=== PATIENT | female | born 1955 | race Caucasian/White ===

== ENCOUNTER 2016-06-26 10:07 | Day surgery (SDC) | payer MEDICARE, OTHER ==
[2016-06-23 13:11] VITALS: BMI 35.0
[~2016-06-26 10:07] MED LIST: LEVOFLOXACIN 500 MG PREMIX BAG IVPB ONE
[2016-06-26] MEDS ORDERED: MIDAZOLAM HCL 2 MG/2 ML SINGLE DOSE VIAL ONE ×2 (13:22)
[2016-06-26] MEDS ORDERED: DEXAMETHASONE SOD PHOSPHATE 4 MG/1 ML VIAL ONE (13:38)
[2016-06-26] MEDS ORDERED: LEVOFLOXACIN 500 MG IVPB 100 ML IVPB ONE (13:43)
--- NOTE | 2016-06-26 14:54 | OP ---
Operative Note - Note: Operative Date: 06/26/16 Pre-Operative Diagnosis: left renal stone Operation: left eswl Findings: 6mm left lower pole renal stone Post-Operative Diagnosis: Same as Pre-op Surgeon: Ti Burns Anesthesia: General Operative Report Dictated: Yes
[2016-06-26 15:13] VITALS: TEMP 97.6
[2016-06-26] MEDS ORDERED: LACTATED RINGERS SOLUTION 1,000 ML IV SCH (15:15)
[2016-06-26 18:26] VITALS: BP 165/75; PULSE 60
--- NOTE | 2016-06-26 20:53 | OP ---
DATE OF OPERATION: 06/26/2016 PREOPERATIVE DIAGNOSIS: Left renal stone. POSTOPERATIVE DIAGNOSIS: Left renal stone. PROCEDURE: Left extracorporeal shock-wave lithotripsy. ATTENDING: Davidson Mireles MD ANESTHESIA: General. OPERATION: The patient was brought in the operating room and placed in supine position on the operating room table. Ultrasonography and fluoroscopy were performed. The patient was then given general anesthesia and preoperative surgical prophylaxis. The 6-mm lower pole stone was lithotripsied utilizing extracorporeal shock-wave. Then 2500 impulses at 20 joules of power was administered to the stone, with excellent fragmentation of the stone. No complications were noted. The patient tolerated the procedure very well. The disposition of the patient was to the recovery room. DAVIDSON MIRELES M.D. /[id number]
== END 2016-06-26 18:26 | disposition home or self-care (01) ==
LOC: JASU-SURG 10:07
PROVIDERS: ATTEND Urology
PROC: 0TF3XZZ Fragmentation in Right Kidney Pelvis, External Approach (ICD-10-PCS; principal; 2016-06-26 12:00)
DX: N20.0 Calculus of kidney (principal)
CPT/HCPCS: 94760

== ENCOUNTER 2017-07-20 08:55 | Emergency (ER) | payer MEDICARE, OTHER ==
[2017-07-20 09:10] VITALS: BP 125/77; TEMP 97.9; BMI 35.2
[2017-07-20] MEDS ORDERED: ALBUTEROL SO4 2.5/IPRATROPIUM 0.5 INH SOL 3 ML VIAL.NEB. NEB ONE ×2 (09:49→09:53)
--- NOTE | 2017-07-20 09:55 | PDOC ---
History of Present Illness - General Chief Complaint: Respiratory Stated Complaint: FEVER, SOB (ASTHMA) Time Seen by Provider: 07/20/17 09:21 History Source: Patient Exam Limitations: No Limitations - History of Present Illness Initial Comments: 07/20/17 09:51 Patient came for evaluation of persistent cough, fevers last night to 100.2, and mild shortness of breath. PMD 3 days ago and prescribed Singulair, albuterol , and Levaquin. States that cough has persisted. Did not call PMD for re-eval. Denies chest pain, palpitations, dizziness but did not feel well therefore felt had need for reevaluation 07/20/17 16:08 Timing/Duration: reports: getting worse Severity: reports: mild, moderate Modifying Factors: improves with: albuterol inhaler, albuterol nebulizer, antibiotics, coughing Associated Symptoms: reports: chest pain/soreness, cough, fever/chills, nasal congestion, wheezing Past History - Travel Traveled outside of the country in the last 30 days: No Close contact w/someone who was outside of country & ill: No - Past Medical History Allergies/Adverse Reactions: Allergies Allergy/AdvReac Type Severity Reaction Status Date / Time codeine Allergy Severe Verified 07/20/17 09:03 morphine Allergy Severe Verified 07/20/17 09:03 shellfish derived Allergy Severe Verified 07/20/17 09:03 Home Medications: Ambulatory Orders Atenolol [Tenormin -] 100 mg PO HS 02/18/16 Insulin (Novolog 70/30) [Novolog Mix 70/30 Vial] 25 ml SQ BID 02/18/16 Lisinopril/Hydrochlorothiazide [Lisinopril-Hctz 10-12.5 mg Tab] 1 each PO DAILY 02/18/16 Insulin (Levemir) [Levemir Vial] 40 unit SQ HS 07/20/17 predniSONE [Deltasone -] 20 mg PO BID #8 tablet 07/20/17 Anemia: No Asthma: No Cancer: No Cardiac Disorders: No CVA: No COPD: No CHF: No Dementia: No Diabetes: Yes (iddm) GI Disorders: No Disorders: No HTN: Yes Hypercholesterolemia: Yes Liver Disease: No Seizures: No Thyroid Disease: No - Surgical History Abdominal Surgery: No Appendectomy: No Cardiac Surgery: No Cholecystectomy: Yes Lung Surgery: No Neurologic Surgery: No Orthopedic Surgery: Yes (bilateral carple tunnel sx) - Suicide/Smoking/Psychosocial Hx Smoking History: Former smoker Have you smoked in the past 12 months: No If you are a former smoker, when did you quit?: 9 yrs ago Information on smoking cessation initiated: No Hx Alcohol Use: No Drug/Substance Use Hx: No Substance Use Type: None Respiratory Specific PMHX - Complaint Specific PMHX Angina: No Bronchitis: Yes Review of Systems - Review of Systems Able to Perform ROS?: Yes Is the patient limited Samoan proficient: Yes Constitutional: Yes: Symptoms Reported, See HPI, Chills, Fever, Malaise HEENTM: Yes: Symptoms Reported, See HPI, Nose Congestion Respiratory: Yes: Symptoms reported, See HPI, Cough (states is nonproductive), Wheezing ABD/GI: No: Symptoms Reported Musculoskeletal: No: Symptoms Reported Integumentary: Yes: See HPI. No: Symptoms Reported, Pruritus, Rash Neurological: Yes: See HPI. No: Symptoms reported, Headache All Other Systems: Reviewed and Negative *Physical Exam - Vital Signs Last Vital Signs Temp Pulse Resp BP Pulse Ox 97.9 F 98 H 20 125/77 98 07/20/17 09:00 07/20/17 09:00 07/20/17 09:00 07/20/17 09:00 07/20/17 09:00 - Physical Exam General Appearance: Yes: Nourished, Appropriately Dressed, Apparent Distress, Mild Distress HEENT: positive: [place], Normal ENT Inspection, TMs Normal, Pharynx Normal, Rhinorrhea Neck: positive: Supple, Lymphadenopathy (R). negative: Tender Respiratory/Chest: positive: Wheezing. negative: Lungs Clear, Normal Breath Sounds Gastrointestinal/Abdominal: positive: Normal Bowel Sounds, Soft. 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 Patient is nontoxic appearing, has no significant shortness of breath or air hunger, has a moist cough but does not complain of chest pain, palpitations, significant shortness of breath. States feels well and was hopeful for discharge. Case was discussed with Dr. Tse, her PMD who prescribed Levaquin, Singulair and albuterol earlier this week. She understands patient came to emergency department for continued treatment and will call in a prescription for a nebulizer compressor at home, albuterol prescription and encouraged use of steroids for breakthrough asthmatic symptoms. Patient was given 60 mg steroid here and prescription for 40 mg for the next 4 days. Also patient understands will follow-up with Dr. Tse in her office on Sunday. Reviewed need to return immediately to emergency department for worsened symptoms, shortness of breath, or any recurrence of fevers. We'll continue the Levaquin *DC/Admit/Observation/Transfer Diagnosis at time of Disposition: Upper respiratory infection, acute - Discharge Dispostion Disposition: HOME Condition at time of disposition: Stable Decision to Admit order: No - Prescriptions Prescriptions: predniSONE [Deltasone -] 20 mg PO BID #8 tablet - Referrals Referrals: Yury Delgado [Primary Care Provider] - - Patient Instructions Printed Discharge Instructions: DI for Acute Bronchitis Additional Instructions: continue Levaquin as prescribed, Use Nebulizer 4 times a day for next 2 days then as needed Contiunue Prednisone 40mg daily for next 4 days Check Blood Sugars daily to ensure no big changes. Rest, Lots of fluids See Dr Delgado Sunday for followup Return to ER for worsen fevers/ Cough/ problems with Blood sugars - Post Discharge Activity
[2017-07-20 11:00] VITALS: PULSE 93
[2017-07-20] MEDS ORDERED: predniSONE 20 MG TABLET (UD) PO ONE (11:41)
[2017-07-20] MEDS ORDERED: predniSONE 20 MG TABLET (UD) ONE (11:46)
== END 2017-07-20 12:17 | disposition home or self-care (01) ==
LOC: JERFT 08:55
PROC: 3E0F7GC Introduction of Other Therapeutic Substance into Respiratory Tract, Via Natural or Artificial Opening (ICD-10-PCS; principal; 2017-07-20)
DX: J06.9 Acute upper respiratory infection, unspecified (principal)
CPT/HCPCS: 71046-TC-FY; 94640; 99281-25; J7620

== ENCOUNTER 2017-10-01 14:03 | Emergency (ER) | payer MEDICARE, OTHER ==
[2017-10-01 14:50] VITALS: BMI 32.7
--- NOTE | 2017-10-01 14:50 | PDOC ---
Rapid Medical Evaluation Time Seen by Provider: 10/01/17 14:48 Medical Evaluation: Allergies Allergy/AdvReac Type Severity Reaction Status Date / Time codeine Allergy Severe Verified 10/01/17 14:44 morphine Allergy Severe Verified 10/01/17 14:44 shellfish derived Allergy Severe Verified 10/01/17 14:44 10/01/17 14:48 Patient c/o: epigastric pain since this am, no fever, brown watery diarrhea x 3 weeks, returned from [facility] on sunday, took meds with mild relief, Patient on brief exam: vss, appears dry Patient ordered for: labs, stool, fluids, ua Patient to proceed to the ED Discharge Disposition - Diagnosis Diarrhea - Referrals - Patient Instructions - Post Discharge Activity
[2017-10-01] MEDS ORDERED: SODIUM CHLORIDE 1,000 ML IV STA (14:51)
[2017-10-01 15:15] LABS: BASO % 0.3 % (0-2.0); EOS % 0.4 % (0-4.5); HEMATOCRIT 36.3 % (32.4-45.2); HEMOGLOBIN 12.5 GM/dL (10.7-15.3); LYMPH % 20.4 % (8-40); MCH 30.8 pg (25.7-33.7); MCHC 34.5 g/dl (32.0-36.0); MEAN CELL VOLUME 89.4 fl (80-96); MEAN PLT VOLUME 11.7 fl (7.5-11.1); MONO % 4.2 % (3.8-10.2); NEUT % 74.7 % (42.8-82.8); PLATELET COUNT 206 K/MM3 (134-434); RBC 4.05 M/mm3 (3.60-5.2); RDW 12.6 % (11.6-15.6); WHITE BLOOD COUNT 6.1 K/mm3 (4.0-10.0)
[2017-10-01 15:29] LABS: CHLORIDE 104 mmol/L (98-107); POTASSIUM 3.9 mmol/L (3.5-5.1); SODIUM 141 mmol/L (136-145)
[2017-10-01 15:37] LABS: ALBUMIN 3.6 g/dl (3.4-5.0); ANION GAP 9 (8-16); BILIRUBIN,TOTAL 0.4 mg/dL (0.2-1.0); BLOOD UREA NITROGEN 16 mg/dL (7-18); CALCIUM 9.2 mg/dL (8.5-10.1); CO2 28 mmol/L (21-32); CREATININE 0.8 mg/dL (0.55-1.02); GLUCOSE,RANDOM 187 mg/dL (74-106); LIPASE 85 U/L (73-393); MAGNESIUM 1.4 mg/dL (1.8-2.4); SGOT/AST 16 U/L (15-37); SGPT/ALT 32 U/L (12-78); TOT PROT 7.3 g/dl (6.4-8.2)
[2017-10-01 15:38] LABS: ALK PHOS 109 U/L (45-117)
--- NOTE | 2017-10-01 16:37 | PDOC ---
Attending Attestation - Medical Decision Making 10/01/17 17:39 Pt presents to the ED complaining of a one day history of epigastric abdominal pain, nausea and vomiting. Had diarrhea for several weeks that spontaneously resolved. Abdomen is non tender on my exam. Differential includes gastritis, pancreatitis, billiary disease, less likely ACS. Will check labs and treat with pepcid, reassess. <Paula Jiménez - Last Filed: 10/01/17 17:39> - Resident Resident Name: Cleopatra Berg - ED Attending Attestation I have performed the following: I have examined & evaluated the patient, The case was reviewed & discussed with the resident, I agree w/resident's findings & plan, Exceptions are as noted - HPI HPI: 10/01/17 17:54 The patient is a 62 year old female, with a significant past medical history of DM and HTN, who presents to the emergency department with, 2 days of diffuse abdominal pain with associated nausea and one episode of nonbloody emesis. She reports 2 days of decreased appetite. She returned home 4 days ago from vacation. As per patient, while she was on vacation in [facility] when she began having diarrhea which occurred for 3 weeks intermittently. She saw a doctor for her symptoms [place] who gave her an unknown pill which helped her for 2 days. She reports 2 days of vaginal and anal itching while on vacation. She went on vacation with a friend who is not depicting similar symptoms. She denies recent fevers, chills, headache or dizziness. She denies recent constipation. She denies recent dysuria, frequency, urgency or hematuria. She denies recent chest pain or shortness of breath. Allergies: NKA Past surgical history: None reported. Social history: Nonsmoker. Denies EtOH use and recreational drug use. - Physicial Exam PE: 10/01/17 17:55 GENERAL: Awake, alert, and fully oriented, in no acute distress HEAD: No signs of trauma NECK: Normal ROM, supple, no lymphadenopathy, JVD, or masses ABDOMEN: Soft, nontender, normoactive bowel sounds. No guarding, no rebound. No masses NEUROLOGICAL: Cranial nerves II through XII grossly intact. Normal speech. SKIN: Warm, Dry, normal turgor, no rashes or lesions noted. <Mal Elmore - Last Filed: 10/01/17 17:55> Attestations - Attestations 10/01/17 17:55 Documentation prepared by Mal Elmore, acting as chief medical technologist for Paula Jiménez MD. <Mal Elmore - Last Filed: 10/01/17 17:55>
--- NOTE | 2017-10-01 16:59 | PDOC ---
History of Present Illness - General Chief Complaint: Pain, Acute Stated Complaint: ABD PAIN Time Seen by Provider: 10/01/17 14:48 - History of Present Illness Initial Comments: 10/01/17 17:09 62 year old w/ past medical history of DM, HTN who presents with 3 weeks of nonbloody watery diarrhea PCP: Fatimah Dave 10/01/17 17:23 Past History - Past Medical History Allergies/Adverse Reactions: Allergies Allergy/AdvReac Type Severity Reaction Status Date / Time codeine Allergy Severe Verified 10/01/17 14:44 morphine Allergy Severe Verified 10/01/17 14:44 shellfish derived Allergy Severe Verified 10/01/17 14:44 Home Medications: Ambulatory Orders Atenolol [Tenormin -] 100 mg PO HS 02/18/16 Insulin (Novolog 70/30) [Novolog Mix 70/30 Vial] 25 ml SQ BID 02/18/16 Lisinopril/Hydrochlorothiazide [Lisinopril-Hctz 10-12.5 mg Tab] 1 each PO DAILY 02/18/16 Insulin (Levemir) [Levemir Vial] 40 unit SQ HS 07/20/17 predniSONE [Deltasone -] 20 mg PO BID #8 tablet 07/20/17 Anemia: No Asthma: No Cancer: No Cardiac Disorders: No CVA: No COPD: No CHF: No Dementia: No Diabetes: Yes (iddm) GI Disorders: No Disorders: No HTN: Yes Hypercholesterolemia: Yes Liver Disease: No Seizures: No Thyroid Disease: No - Surgical History Abdominal Surgery: No Appendectomy: No Cardiac Surgery: No Cholecystectomy: Yes Lung Surgery: No Neurologic Surgery: No Orthopedic Surgery: Yes (bilateral carple tunnel sx) - Suicide/Smoking/Psychosocial Hx Smoking History: Former smoker Have you smoked in the past 12 months: No If you are a former smoker, when did you quit?: 9 yrs ago Information on smoking cessation initiated: No Hx Alcohol Use: No Drug/Substance Use Hx: No Substance Use Type: None *Physical Exam - Vital Signs Last Vital Signs Temp Pulse Resp BP Pulse Ox 97.6 F 65 19 155/71 100 10/01/17 14:44 10/01/17 14:44 10/01/17 14:44 10/01/17 14:44 10/01/17 14:44 ED Treatment Course - LABORATORY CBC & Chemistry Diagram: 10/01/17 15:07 10/01/17 15:07 - ADDITIONAL ORDERS Additional order review: Laboratory Results 10/01/17 15:07 Sodium 141 Potassium 3.9 Chloride 104 Carbon Dioxide 28 Anion Gap 9 BUN 16 Creatinine 0.8 Creat Clearance w eGFR > 60 Random Glucose 187 H Calcium 9.2 Magnesium 1.4 L Total Bilirubin 0.4 AST 16 ALT 32 Alkaline Phosphatase 109 Total Protein 7.3 Albumin 3.6 Lipase 85 10/01/17 15:07 RBC 4.05 MCV 89.4 MCHC 34.5 RDW 12.6 MPV 11.7 H Neutrophils % 74.7 Lymphocytes % 20.4 D Monocytes % 4.2 Eosinophils % 0.4 Basophils % 0.3 - Medications Given in the ED: ED Medications Discontinued Medications Generic Name Dose Route Start Last Admin Trade Name Freq PRN Reason Stop Dose Admin Sodium Chloride 1,000 mls @ 1,000 mls/hr 10/01/17 14:51 10/01/17 15:16 Normal Saline - IV 10/01/17 15:50 1,000 mls/hr ASDIR STA Administration *DC/Admit/Observation/Transfer Diagnosis at time of Disposition: Diarrhea - Discharge Dispostion Disposition: HOME Condition at time of disposition: Stable Decision to Admit order: No - Referrals - Patient Instructions - Post Discharge Activity
[2017-10-01] MEDS ORDERED: FAMOTIDINE 20 MG/50 ML IVPB 20 MG/50 ML MG IVPB ONE ×2 (17:20→18:05)
[2017-10-01 17:27] LABS: ACETONE SERUM NEGATIVE (NEGATIVE)
[2017-10-01 17:53] VITALS: BP 124/88; PULSE 68; TEMP 97.8
[2017-10-01 18:13] LABS: URINE APPEARANCE CLEAR; URINE BILIRUBIN NEGATIVE (<2.0 mg/dL); URINE COLOR STRAW; URINE GLUCOSE (UA) 2+ (NEGATIVE); URINE KETONE NEGATIVE (NEGATIVE); URINE LEUK ESTERASE NEGATIVE (NEGATIVE); URINE NITRITE NEGATIVE (NEGATIVE); URINE PROTEIN NEGATIVE (NEGATIVE); URINE UROBILINOGEN NEGATIVE mg/dL (0.2-1.0)
--- NOTE | 2017-10-01 21:31 | PDOC ---
*Physical Exam - Vital Signs Last Vital Signs Temp Pulse Resp BP Pulse Ox 97.8 F 68 16 124/88 99 10/01/17 17:52 10/01/17 17:52 10/01/17 17:52 10/01/17 17:52 10/01/17 17:52 - Physical Exam General Appearance: Yes: Nourished ED Treatment Course - LABORATORY CBC & Chemistry Diagram: 10/01/17 15:07 10/01/17 15:07 - ADDITIONAL ORDERS Additional order review: Laboratory Results 10/01/17 10/01/17 10/01/17 20:14 17:39 16:31 Sodium Potassium Chloride Carbon Dioxide Anion Gap BUN Creatinine Creat Clearance w eGFR Random Glucose Calcium Magnesium Total Bilirubin AST ALT Alkaline Phosphatase Creatine Kinase 128 Cancelled Troponin I < 0.02 Cancelled Total Protein Albumin Lipase Urine Color Straw Urine Appearance Clear Urine pH 5.0 Ur Specific [place] 1.012 Urine Protein Negative Urine Glucose (UA) 2+ H Urine Ketones Negative Urine Blood Negative Urine Nitrite Negative Urine Bilirubin Negative Urine Urobilinogen Negative Ur Leukocyte Esterase Negative Acetone, Qual 10/01/17 15:07 Sodium 141 Potassium 3.9 Chloride 104 Carbon Dioxide 28 Anion Gap 9 BUN 16 Creatinine 0.8 Creat Clearance w eGFR > 60 Random Glucose 187 H Calcium 9.2 Magnesium 1.4 L Total Bilirubin 0.4 AST 16 ALT 32 Alkaline Phosphatase 109 Creatine Kinase Troponin I Total Protein 7.3 Albumin 3.6 Lipase 85 Urine Color Urine Appearance Urine pH Ur Specific [place] Urine Protein Urine Glucose (UA) Urine Ketones Urine Blood Urine Nitrite Urine Bilirubin Urine Urobilinogen Ur Leukocyte Esterase Acetone, Qual Negative L 10/01/17 15:07 RBC 4.05 MCV 89.4 MCHC 34.5 RDW 12.6 MPV 11.7 H Neutrophils % 74.7 Lymphocytes % 20.4 D Monocytes % 4.2 Eosinophils % 0.4 Basophils % 0.3 - Medications Given in the ED: ED Medications Discontinued Medications Generic Name Dose Route Start Last Admin Trade Name Freq PRN Reason Stop Dose Admin Sodium Chloride 1,000 mls @ 1,000 mls/hr 10/01/17 14:51 10/01/17 15:16 Normal Saline - IV 10/01/17 15:50 1,000 mls/hr ASDIR STA Administration Famotidine/Sodium Chloride 20 mg in 50 mls @ 100 mls/hr 10/01/17 17:20 17:39 Pepcid 20 Mg Premixed Ivpb - IVPB 10/01/17 17:49 100 mls/hr ONCE ONE Administration *DC/Admit/Observation/Transfer Diagnosis at time of Disposition: Diarrhea - Discharge Dispostion Disposition: HOME Condition at time of disposition: Stable Decision to Admit order: No - Referrals - Patient Instructions Printed Discharge Instructions: Viral Gastroenteritis Additional Instructions: Come back to the emergency department for any new, worsening or concerning symptom. Follow up with you primary care provider within the next 2-3 days. - Post Discharge Activity
== END 2017-10-01 21:53 | disposition home or self-care (01) ==
LOC: JER 14:03
PROC: 3E0337Z Introduction of Electrolytic and Water Balance Substance into Peripheral Vein, Percutaneous Approach (ICD-10-PCS; principal; 2017-10-01)
PROC: 3E033GC Introduction of Other Therapeutic Substance into Peripheral Vein, Percutaneous Approach (ICD-10-PCS; 2017-10-01)
DX: R19.7 Diarrhea, unspecified (principal); I10 Essential (primary) hypertension; E78.00 Pure hypercholesterolemia, unspecified; E11.9 Type 2 diabetes mellitus without complications; Z79.4 Long term (current) use of insulin
CPT/HCPCS: 36415; 80053; 81003; 82009; 82550; 83690; 83735; 84484; 85025; 87045; 87046; 87324; 87449; 96361; 96365; 99283-25; J7030

== ENCOUNTER 2018-03-08 20:26 | Emergency (ER) | payer MEDICARE, OTHER ==
--- NOTE | 2018-03-08 20:30 | PDOC ---
Rapid Medical Evaluation Time Seen by Provider: 03/08/18 20:28 Medical Evaluation: Allergies Allergy/AdvReac Type Severity Reaction Status Date / Time codeine Allergy Severe Verified 10/01/17 14:44 morphine Allergy Severe Verified 10/01/17 14:44 shellfish derived Allergy Severe Verified 10/01/17 14:44 03/08/18 20:28 I have performed a brief in-person evaluation of this patient. The patient presents with a chief complaint of: URI w/ possible asthma flare. No f/c. Using asthma meds w/ some relief. Also has HTN, DM Pertinent physical exam findings: Low grade fever w/ tachycardia, chest/lungs clear I have ordered the following:cxr The patient will proceed to the ED for further evaluation. Discharge Disposition - Diagnosis URI (upper respiratory infection) Qualifiers: URI type: unspecified URI Qualified Code(s): J06.9 - Acute upper respiratory infection, unspecified - Referrals - Patient Instructions - Post Discharge Activity
[2018-03-08 20:32] VITALS: BP 118/72; PULSE 108; TEMP 100.4; BMI 34.4
[2018-03-08] MEDS ORDERED: ACETAMINOPHEN 325 MG TABLET (FP) PO ONE (21:32)
[2018-03-08] MEDS ORDERED: ACETAMINOPHEN 325 MG TABLET (FP) ONE (21:35)
--- NOTE | 2018-03-08 21:41 | PDOC ---
History of Present Illness - General Chief Complaint: Respiratory Stated Complaint: ASTHMA Time Seen by Provider: 03/08/18 20:28 History Source: Patient - History of Present Illness Initial Comments: 03/08/18 21:41 62 year old female with subjective fever x 8 days and cough on and off for 3 weeks. denies shortness of breath. reports that symptoms are worse at night. PMHX: HTN, Diabetes, recent cardiac cath negative recent travel to [facility] in september 2017 Past History - Past Medical History Allergies/Adverse Reactions: Allergies Allergy/AdvReac Type Severity Reaction Status Date / Time codeine Allergy Severe Verified 10/01/17 14:44 morphine Allergy Severe Verified 10/01/17 14:44 shellfish derived Allergy Severe Verified 10/01/17 14:44 Home Medications: Ambulatory Orders Lisinopril/Hydrochlorothiazide [Lisinopril-Hctz 10-12.5 mg Tab] 1 each PO DAILY 02/18/16 Insulin (Levemir) [Levemir Vial] 40 unit SQ HS 07/20/17 Aspirin [ASA -] 81 mg PO DAILY 10/01/17 Insulin Regular [NOVOLIN R VIAL *IVPUSH / ER / ICU Only*] 10 units SQ TIDCM Metformin HCl [Metformin HCl ER] 1,000 mg PO BID 10/01/17 Anemia: No Asthma: Yes Cancer: No Cardiac Disorders: No CVA: No COPD: No CHF: No Dementia: No Diabetes: Yes (iddm) GI Disorders: No Disorders: No HTN: Yes Hypercholesterolemia: Yes Liver Disease: No Seizures: No Thyroid Disease: No - Surgical History Abdominal Surgery: No Appendectomy: No Cardiac Surgery: No Cholecystectomy: Yes Lung Surgery: No Neurologic Surgery: No Orthopedic Surgery: Yes (bilateral carple tunnel sx) - Suicide/Smoking/Psychosocial Hx Smoking History: Former smoker Have you smoked in the past 12 months: No If you are a former smoker, when did you quit?: years ago Information on smoking cessation initiated: No Hx Alcohol Use: No Drug/Substance Use Hx: No Substance Use Type: None Respiratory Specific PMHX - Complaint Specific PMHX Angina: No Bronchitis: Yes Review of Systems - Review of Systems Able to Perform ROS?: Yes Is the patient limited Citizen Of [place] proficient: No Constitutional: Yes: Fever, Night Sweats HEENTM: No: Symptoms Reported, See HPI, Eye Pain, Blurred Vision, Tearing, Recent change in vision, Double Vision, Cataracts, Ear Pain, Ocular Prothesis, Ear Discharge, Nose Pain, Nose Congestion, Tinnitus, Nose Bleeding, Hearing Loss , Throat Pain, Throat Swelling, Mouth Pain, Dental Problems, Difficulty Swallowing, Mouth Swelling, Other Respiratory: Yes: Cough. No: Symptoms reported, See HPI, Orthopnea, Shortness of Breath, SOB with Exertion, SOB at Rest, Stridor, Wheezing, Productive cough, Hemoptysis, Other Cardiac (ROS): No: Symptoms Reported, See HPI, Chest Pain, Edema, Irregular Heart Rate, Lightheadedness, Palpitations, Syncope, Chest Tightness, Other Integumentary: No: Symptoms Reported, See HPI, Bruising, Change in Color, Change in Hair/Nails, Dryness, Erythema, Flushing, Lesions, Lumps, Pallor, Pruritus, Rash, Sweating, Other *Physical Exam - Vital Signs Last Vital Signs Temp Pulse Resp BP Pulse Ox 100.4 F H 108 H 118/72 99 03/08/18 20:30 03/08/18 20:30 03/08/18 20:30 03/08/18 20:30 - Physical Exam General Appearance: Yes: Appropriately Dressed Respiratory/Chest: positive: Lungs Clear, Normal Breath Sounds Cardiovascular: positive: Tachycardia Gastrointestinal/Abdominal: positive: Normal Bowel Sounds, Soft. negative: Tender Musculoskeletal: positive: Normal Inspection Extremity: positive: Normal Capillary Refill, Normal Inspection, Normal Range of Motion Integumentary: positive: Normal Color, Dry, Warm Neurologic: positive: Fully Oriented, Alert, Normal Mood/Affect Moderate Sedation - Procedure Monitoring Vital Signs: Procedure Monitoring Vital Signs Temperature 100.4 F H 03/08/18 20:30 Pulse Rate 108 H 03/08/18 20:30 Respiratory Rate Blood Pressure 118/72 03/08/18 20:30 O2 Sat by Pulse Oximetry (%) 99 03/08/18 20:30 Progress Note - Progress Note Progress Note: patient meets SIRS criteria. signed out to Marcela NATHAN. *DC/Admit/Observation/Transfer Diagnosis at time of Disposition: URI (upper respiratory infection) Qualifiers: URI type: unspecified URI Qualified Code(s): J06.9 - Acute upper respiratory infection, unspecified - Referrals - Patient Instructions - Post Discharge Activity
[2018-03-08 22:04] LABS: BASO % 0.8 % (0-2.0); EOS % 3.3 % (0-4.5); HEMATOCRIT 34.3 % (32.4-45.2); HEMOGLOBIN 12.1 GM/dL (10.7-15.3); LYMPH % 20.9 % (8-40); MCH 31.1 pg (25.7-33.7); MCHC 35.2 g/dl (32.0-36.0); MEAN CELL VOLUME 88.3 fl (80-96); MEAN PLT VOLUME 12.1 fl (7.5-11.1); MONO % 9.5 % (3.8-10.2); NEUT % 65.5 % (42.8-82.8); RBC 3.88 M/mm3 (3.60-5.2); RDW 13.1 % (11.6-15.6); WHITE BLOOD COUNT 6.9 K/mm3 (4.0-10.0)
[2018-03-08 22:24] LABS: PLATELET COUNT 186 K/MM3 (134-434); PLATELET ESTIMATE ADEQUATE
[2018-03-08 23:09] LABS: ALBUMIN 3.7 g/dl (3.4-5.0); ALK PHOS 110 U/L (45-117); ANION GAP 10 MMOL/L (8-16); BLOOD UREA NITROGEN 13 mg/dL (7-18); CALCIUM 8.8 mg/dL (8.5-10.1); CHLORIDE 102 mmol/L (98-107); CO2 25 mmol/L (21-32); GLUCOSE,RANDOM 217 mg/dL (74-106); POTASSIUM 3.5 mmol/L (3.5-5.1); SGOT/AST 25 U/L (15-37); SGPT/ALT 39 U/L (13-61); SODIUM 137 mmol/L (136-145); TOT PROT 7.5 g/dl (6.4-8.2)
[2018-03-08 23:10] LABS: BILIRUBIN,TOTAL 0.3 mg/dL (0.2-1)
[2018-03-08] MEDS ORDERED: SODIUM CHLORIDE 1,000 ML IV STA (23:51)
[2018-03-09 02:14] LABS: URINE APPEARANCE SLCLOUDY; URINE BILIRUBIN NEGATIVE (<2.0 mg/dL); URINE COLOR YELLOW; URINE GLUCOSE (UA) 3+ (NEGATIVE); URINE KETONE NEGATIVE (NEGATIVE); URINE LEUK ESTERASE 3+ (NEGATIVE); URINE NITRITE NEGATIVE (NEGATIVE); URINE PROTEIN NEGATIVE (NEGATIVE)
[2018-03-09 02:20] LABS: EPI CELLS RARE /HPF (FEW); URINE HYALINE CAST 16 /lpf; URINE MUCUS RARE
[2018-03-09] MEDS ORDERED: ALBUTEROL SO4 2.5/IPRATROPIUM 0.5 INH SOL 3 ML VIAL.NEB. NEB ONE ×2 (02:46→03:14)
--- NOTE | 2018-03-09 02:47 | PDOC ---
History of Present Illness - General Chief Complaint: Respiratory Stated Complaint: ASTHMA Time Seen by Provider: 03/08/18 20:28 History Source: Patient Exam Limitations: No Limitations - History of Present Illness Initial Comments: 03/09/18 03:51 62-year-old female presents to the emergency department complaining of subjective fever, chills with intermittent coughing 1 week but denies nausea/ vomiting/diarrhea, headache, dizziness, lightheadedness, night sweats, facial pains, nasal congestion, rhinorrhea, earache, sore throat, difficulty swallowing , neck pain/stiffness, back pains, chest pain, shortness of breath, abdominal pains, flank pains, urinary symptoms, extremity numbness or tingling vision. Patient states she's taken Tylenol which exacerbates her symptoms. Patient states today she's been coughing a little more causing wheezing that she takes deep breaths. No history of similar symptoms Past History - Past Medical History Allergies/Adverse Reactions: Allergies Allergy/AdvReac Type Severity Reaction Status Date / Time codeine Allergy Severe Verified 10/01/17 14:44 morphine Allergy Severe Verified 10/01/17 14:44 shellfish derived Allergy Severe Verified 10/01/17 14:44 Home Medications: Ambulatory Orders Lisinopril/Hydrochlorothiazide [Lisinopril-Hctz 10-12.5 mg Tab] 1 each PO DAILY 02/18/16 Insulin (Levemir) [Levemir Vial] 40 unit SQ HS 07/20/17 Aspirin [ASA -] 81 mg PO DAILY 10/01/17 Insulin Regular [NOVOLIN R VIAL *IVPUSH / ER / ICU Only*] 10 units SQ TIDCM Metformin HCl [Metformin HCl ER] 1,000 mg PO BID 10/01/17 Levofloxacin [Levaquin] 500 mg PO DAILY #6 tablet 03/09/18 Anemia: No Asthma: Yes Cancer: No Cardiac Disorders: No CVA: No COPD: No CHF: No Dementia: No Diabetes: Yes (iddm) GI Disorders: No Disorders: No HTN: Yes Hypercholesterolemia: Yes Liver Disease: No Seizures: No Thyroid Disease: No - Surgical History Abdominal Surgery: No Appendectomy: No Cardiac Surgery: No Cholecystectomy: Yes Lung Surgery: No Neurologic Surgery: No Orthopedic Surgery: Yes (bilateral carple tunnel sx) - Suicide/Smoking/Psychosocial Hx Smoking History: Former smoker Have you smoked in the past 12 months: No If you are a former smoker, when did you quit?: years ago Information on smoking cessation initiated: No Hx Alcohol Use: No Drug/Substance Use Hx: No Substance Use Type: None Respiratory Specific PMHX - Complaint Specific PMHX Angina: No Bronchitis: Yes Review of Systems - Review of Systems Able to Perform ROS?: Yes Comments:: 03/09/18 03:53 CONSTITUTIONAL: +fever/chills Absent: diaphoresis, generalized weakness, malaise, loss of appetite HEENT: Absent: rhinorrhea, nasal congestion, throat pain, throat swelling, difficulty swallowing, mouth swelling, ear pain, eye pain, visual Changes CARDIOVASCULAR: Absent: chest pain, loss of consciousness, palpitations, irregular heart rate, peripheral edema RESPIRATORY: +cough, wheezing Absent: shortness of breath, dyspnea with exertion, orthopnea, stridor, hemoptysis GASTROINTESTINAL: Absent: abdominal pain, abdominal distension, nausea, vomiting, diarrhea, constipation, melena, hematochezia GENITOURINARY: Absent: dysuria, frequency, urgency, hesitancy, hematuria, flank pain, genital pain MUSCULOSKELETAL: Absent: myalgia, arthralgia, joint swelling SKIN: Absent: rash, itching, pallor HEMATOLOGIC/IMMUNOLOGIC: Absent: easy bleeding, easy bruising, lymphadenopathy, frequent infections Is the patient limited [place]i proficient: No *Physical Exam - Vital Signs Last Vital Signs Temp Pulse Resp BP Pulse Ox 100.4 F H 108 H 118/72 99 03/08/18 20:30 03/08/18 20:30 03/08/18 20:30 03/08/18 20:30 - Physical Exam Comments: 03/09/18 03:54 GENERAL: Well developed, well nourished. Awake and alert. No acute distress. HEENT: Normocephalic, atraumatic. PERRLA, EOMI. No conjunctival pallor. Sclera are non- icteric. Moist mucous membranes. Oropharynx is clear. NECK: Supple. Full ROM. No JVD. Carotid pulses 2+ and symmetric, without bruits. No thyromegaly. No lymphadenopathy. CARDIOVASCULAR: Regular rate and rhythm. No murmurs, rubs, or gallops. Distal pulses are 2+ and symmetric. PULMONARY: +LLL exp wheezes No evidence of respiratory distress. Lungs clear to auscultation bilaterally. Daisy or rhonchi. ABDOMINAL: Soft. Non-tender. Non-distended. No rebound or guarding. No organomegaly. Normoactive bowel sounds. MUSCULOSKELETAL Normal range of motion at all joints. No bony deformities or tenderness. No CVA tenderness. EXTREMITIES: No cyanosis. No clubbing. No edema. No calf tenderness. SKIN: Warm and dry. Normal capillary refill. No rashes. No jaundice. NEUROLOGICAL: Alert, awake, appropriate. Cranial nerves 2-12 intact. No deficits to light touch and temperature in face, upper extremities and lower extremities. No motor deficits in the in face, upper extremities and lower extremities. Normoreflexic in the upper and lower extremities. Normal speech. Toes are down- going bilaterally. Gait is normal without ataxia. PSYCHIATRIC: Cooperative. Good eye contact. Appropriate mood and affect. Moderate Sedation - Procedure Monitoring Vital Signs: Procedure Monitoring Vital Signs Temperature 100.4 F H 03/08/18 20:30 Pulse Rate 108 H 03/08/18 20:30 Respiratory Rate Blood Pressure 118/72 03/08/18 20:30 O2 Sat by Pulse Oximetry (%) 99 03/08/18 20:30 ED Treatment Course - LABORATORY CBC & Chemistry Diagram: 03/08/18 21:45 03/08/18 21:45 - ADDITIONAL ORDERS Additional order review: Laboratory Results 03/09/18 03/08/18 03/08/18 01:59 21:45 21:45 Sodium Potassium Chloride Carbon Dioxide Anion Gap BUN Creatinine Creat Clearance w eGFR Random Glucose Lactic Acid 2.6 H* Calcium Total Bilirubin AST ALT Alkaline Phosphatase Creatine Kinase 254 H Creatine Kinase Index 0.3 CK-MB (CK-2) < 1.0 Troponin I < 0.02 Total Protein Albumin Urine Color Yellow Urine Appearance Slcloudy Urine pH 5.0 [address] Specific [place] 1.022 Urine Protein Negative Urine Glucose (UA) 3+ H Urine Ketones Negative Urine Blood Negative Urine Nitrite Negative Urine Bilirubin Negative Urine Urobilinogen 2.0 H Ur Leukocyte Esterase 3+ H Urine WBC (Auto) 24 Urine RBC (Auto) 5 Ur Epithelial Cells Rare Hyaline Casts 16 Urine Mucus Rare 03/08/18 21:45 Sodium 137 Potassium 3.5 Chloride 102 Carbon Dioxide 25 Anion Gap 10 BUN 13 Creatinine 1.0 Creat Clearance w eGFR 56.18 Random Glucose 217 H Lactic Acid Calcium 8.8 Total Bilirubin 0.3 AST 25 ALT 39 Alkaline Phosphatase 110 Creatine Kinase Creatine Kinase Index CK-MB (CK-2) Troponin I Total Protein 7.5 Albumin 3.7 Urine Color Urine Appearance Urine pH Ur Specific [place] Urine Protein Urine Glucose (UA) Urine Ketones Urine Blood Urine Nitrite Urine Bilirubin Urine Urobilinogen Ur Leukocyte Esterase Urine WBC (Auto) Urine RBC (Auto) Ur Epithelial Cells Hyaline Casts Urine Mucus 03/08/18 21:45 RBC 3.88 MCV 88.3 MCHC 35.2 RDW 13.1 MPV 12.1 H Neutrophils % 65.5 Lymphocytes % 20.9 Monocytes % 9.5 D Eosinophils % 3.3 D Basophils % 0.8 - Medications Given in the ED: ED Medications Discontinued Medications Generic Name Dose Route Start Last Admin Trade Name Freq PRN Reason Stop Dose Admin Acetaminophen 650 mg 03/08/18 21:32 03/08/18 21:36 Tylenol - PO 03/08/18 21:33 650 mg ONCE ONE Administration Sodium Chloride 1,000 mls @ 1,000 mls/hr 03/08/18 23:51 03/09/18 00:51 Normal Saline - IV 03/09/18 00:50 1,000 mls/hr ASDIR STA Administration *DC/Admit/Observation/Transfer Diagnosis at time of Disposition: Wheezing URI (upper respiratory infection) Qualifiers: URI type: unspecified URI Qualified Code(s): J06.9 - Acute upper respiratory infection, unspecified UTI (urinary tract infection) Qualifiers: Urinary tract infection type: acute cystitis Hematuria presence: without hematuria Qualified Code(s): N30.00 - Acute cystitis without hematuria - Discharge Dispostion Condition at time of disposition: Stable Decision to Admit order: No - Prescriptions Prescriptions: Levofloxacin [Levaquin] 500 mg PO DAILY #6 tablet - Referrals Referrals: Too Pollard MD [Staff Physician] - Thom Cantor MD., MD [Staff Physician] - - Patient Instructions Printed Discharge Instructions: DI for Urinary Tract Infection (UTI), DI for Viral Upper Respiratory Infection -- Adult Additional Instructions: Follow-up with your physician within 2 days Tylenol alternating with Motrin as needed for pain or fever every 4-6 hours Increase fluids Antibiotics as prescribed until completion Return back to the ER for severe/persistent or worsening symptoms - Post Discharge Activity
== END 2018-03-09 03:57 | disposition home or self-care (01) ==
LOC: JERFT 20:26 → JER 20:26
PROC: 3E0337Z Introduction of Electrolytic and Water Balance Substance into Peripheral Vein, Percutaneous Approach (ICD-10-PCS; principal; 2018-03-08)
PROC: 3E0F7GC Introduction of Other Therapeutic Substance into Respiratory Tract, Via Natural or Artificial Opening (ICD-10-PCS; 2018-03-08)
DX: J06.9 Acute upper respiratory infection, unspecified (principal); N30.00 Acute cystitis without hematuria; I10 Essential (primary) hypertension; E11.9 Type 2 diabetes mellitus without complications; Z79.4 Long term (current) use of insulin; E78.00 Pure hypercholesterolemia, unspecified
CPT/HCPCS: 36415; 71046-TC-FY; 80053; 81003; 81015; 82550; 82553; 83605; 84484; 85025; 87040; 87086; 87804; 94640; 96360; 99283-25; J7030

== ENCOUNTER 2019-03-07 06:47 | Emergency (ER) | payer MEDICARE, OTHER ==
[2019-03-07 06:51] VITALS: BMI 30.2
--- NOTE | 2019-03-07 07:23 | PDOC ---
History of Present Illness - General Chief Complaint: Pain, Acute Stated Complaint: ABDOMINAL PAIN Time Seen by Provider: 03/07/19 07:22 - History of Present Illness Initial Comments: 03/07/19 07:39 63 year old woman with history of HTN, HLD, DM who presents with 8/10 cramping nonradiating abdominal pain and 2 episodes of nbnb emesis after drinking her coffee in the morning. She denies diarrhea, chest pain, shortness of breath, fevers, or any recent sick contacts. She denies any current nausea PSHC: cholecystectomy, hysterectomy ROS GENERAL/CONSTITUTIONAL: No fever or chills. No weakness. HEAD, EYES, EARS, NOSE AND THROAT:No sore throat. CARDIOVASCULAR: No chest pain or shortness of breath RESPIRATORY: No cough, wheezing, or hemoptysis. GASTROINTESTINAL: + nausea, vomiting, No diarrhea or constipation. GENITOURINARY: No dysuria, frequency, or change in urination. MUSCULOSKELETAL: No joint or muscle swelling or pain. No neck or back pain. SKIN: No rash NEUROLOGIC: No headache, vertigo, loss of consciousness, or change in strength/ sensation. ENDOCRINE: No increased thirst. No abnormal weight change PE GENERAL: Awake, alert, and fully oriented, in no acute distress HEAD: No signs of trauma, normocephalic, atraumatic EYES: EOMI, sclera anicteric, conjunctiva clear ENT: oropharynx clear without exudates. Moist mucosa NECK: Normal ROM, supple LUNGS: No distress, speaks full sentences, clear to auscultation bilaterally HEART: Regular rate and rhythm, normal S1 and S2, no murmurs, rubs or gallops, peripheral pulses normal and equal bilaterally. ABDOMEN: Soft, + diffusely tender, No guarding, no rebound. No masses EXTREMITIES : Normal inspection, Normal range of motion, no edema. No clubbing or cyanosis. NEUROLOGICAL: Cranial nerves II through XII grossly intact. Normal speech, no focal sensorimotor deficits SKIN: Warm, Dry, normal turgor, no rashes or lesions noted MDM DDX including but not limited to: r/o acs pancreatitis vs GERD PUD vs gastroparesis ED Course: cbc, cmp, trop, ekg, lipase tylenol, pepcid, maalox CT - mild fatty liver, no acte pathology Cleopatra Berg, PGY2 Emergency Medicine 03/07/19 10:25 Past History - Past Medical History Allergies/Adverse Reactions: Allergies Allergy/AdvReac Type Severity Reaction Status Date / Time codeine Allergy Severe Verified 03/07/19 06:49 morphine Allergy Severe Verified 03/07/19 06:49 shellfish derived Allergy Severe Verified 03/07/19 06:49 Home Medications: Ambulatory Orders Lisinopril/Hydrochlorothiazide [Lisinopril-Hctz 10-12.5 mg Tab] 1 each PO DAILY 02/18/16 Insulin (Levemir) [Levemir Vial] 40 unit SQ HS 07/20/17 Aspirin [ASA -] 81 mg PO DAILY 10/01/17 Insulin Regular [NOVOLIN R VIAL *IVPUSH / ER / ICU Only*] 10 units SQ TIDCM Allopurinol 300 mg PO DAILY 03/07/19 Clopidogrel Bisulfate [Clopidogrel] 75 mg PO DAILY 03/07/19 Dapagliflozin Propanediol [Farxiga] 10 mg PO DAILY 03/07/19 Escitalopram Oxalate [Lexapro -] 10 mg PO DAILY 03/07/19 Famotidine 20 mg PO DAILY 03/07/19 Famotidine [Pepcid -] 20 mg PO BID #14 tablet 03/07/19 Oxybutynin Chloride [Ditropan Xl] 10 mg PO DAILY 03/07/19 Anemia: No Asthma: Yes Cancer: No Cardiac Disorders: No CVA: No COPD: No CHF: No Dementia: No Diabetes: Yes (iddm) GI Disorders: No Disorders: No HTN: Yes Hypercholesterolemia: Yes Liver Disease: No Seizures: No Thyroid Disease: No - Surgical History Abdominal Surgery: No Appendectomy: No Cardiac Surgery: No Cholecystectomy: Yes Lung Surgery: No Neurologic Surgery: No Orthopedic Surgery: Yes (bilateral carple tunnel sx) - Psycho Social/Smoking Cessation Hx Smoking History: Never smoked Have you smoked in the past 12 months: No If you are a former smoker, when did you quit?: years ago Information on smoking cessation initiated: No Hx Alcohol Use: No Drug/Substance Use Hx: No Substance Use Type: None *Physical Exam - Vital Signs Last Vital Signs Temp Pulse Resp BP Pulse Ox 97.8 F 66 18 123/74 98 03/07/19 06:49 03/07/19 06:49 03/07/19 06:49 03/07/19 06:49 03/07/19 06:49 ED Treatment Course - LABORATORY CBC & Chemistry Diagram: 03/07/19 07:30 03/07/19 07:30 Discharge - Discharge Information Problems reviewed: Yes Clinical Impression/Diagnosis: Vomiting, Abdominal pain Condition: Stable Disposition: HOME - Admission No - Follow up/Referral Referrals: Margraet Hale MD [Primary Care Provider] - Randall Lorenzo MD [Staff Physician] - - Patient Discharge Instructions Patient Printed Discharge Instructions: DI for Nonalcoholic Fatty Liver Disease , DI for Vomiting -- Adult, DI for Abdominal Pain-Adult Additional Instructions: You were seen in the ER for vomiting and abdominal pain Your results showed fatty liver changes You have a referral to GI and should follow up within week You have a prescription for pepcid and you should take this as indicated Return to the ER if you have worsening abdominal pain, vomiting, fevers, blood in vomit or any other concerning symptoms. - Post Discharge Activity
[2019-03-07] MEDS ORDERED: MAG HYDROX/AL HYDROX/SIMETH -MYLANTA- ORAL SUSPENSION PO ONE (07:38)
[2019-03-07] MEDS ORDERED: FAMOTIDINE 20 MG/50 ML IVPB 20 MG/50 ML MG IVPB ONE ×2 (07:38→07:50)
[2019-03-07] MEDS ORDERED: ACETAMINOPHEN 325 MG TABLET (FP) PO ONE (07:43)
[2019-03-07] MEDS ORDERED: MAG HYDROX/AL HYDROX/SIMETH 30 ML UNIT-DOSE CUP ONE (07:49)
[2019-03-07] MEDS ORDERED: ACETAMINOPHEN 325 MG TABLET (FP) ONE (07:49)
--- NOTE | 2019-03-07 08:21 | PDOC ---
Attending Attestation - Resident Resident Name: Cleopatra Berg - ED Attending Attestation I have performed the following: I have examined & evaluated the patient, The case was reviewed & discussed with the resident, I agree w/resident's findings & plan, Exceptions are as noted - HPI HPI: 03/07/19 08:19 63 F with h/o HTN, DM, HLD, presenting to ED with epigastric pain and vomiting. Pt states that she woke up this morning and drank coffee on an empty stomach. Shortly after, she began to have epigastric pain associated with 2 episodes of NBNB emesis. Pt denies F/C. Denies diarrhea/constipation. Denies CP/SOB. - Physicial Exam PE: 03/07/19 08:20 "GENERAL: Awake, alert, and fully oriented, in no acute distress. HEAD: No signs of trauma EYES: PERRLA, EOMI, sclera anicteric, conjunctiva clear ENT: Auricles normal inspection, hearing grossly normal, nares patent, oropharynx clear without exudates. Moist mucosa NECK: Nontender, no stepoffs, Normal ROM, supple, no lymphadenopathy, JVD, or masses LUNGS: Breath sounds equal, clear to auscultation bilaterally. No wheezes, and no crackles HEART: Regular rate and rhythm, normal S1 and S2, no murmurs, rubs or gallops ABDOMEN: + epigastric TTP, normoactive bowel sounds. No guarding, no rebound. No masses EXTREMITIES: Normal range of motion, no edema. No clubbing or cyanosis. No cords, erythema, or tenderness NEUROLOGICAL: Cranial nerves II through XII intact. 5/5 strength and sensation in all extremities, Normal speech, normal gait, normal cerebellar function SKIN: Warm, Dry, normal turgor, no rashes or lesions noted. - Medical Decision Making 03/07/19 08:20 63 F with epigastric pain + N/V. Likely gastritis 2/2 coffee. Will r/o pancreatitis. Pt with no CP/SOB but will also r/o ACS. - labs, trop, lipase - EKG - GI cocktail 03/07/19 11:05 Pt with elevated LFTs CT obtained, unremarkable Pt reassessed - pain now much improved with GI cocktail Will DC with GI f/u to recheck LFTs. Pt is well appearing, with normal vitals. Clinically stable for DC at this time. I discussed the physical exam findings, ancillary test results and final diagnoses with the patient. I answered all of the patient's questions. The patient was satisfied with the care received and felt comfortable with the discharge plan and treatment plan. The patient agrees to follow up with the primary care physician within 24-72 hours.
[2019-03-07 08:22] LABS: LIPASE 137 U/L (73-393)
[2019-03-07 08:23] LABS: BASO % 0.2 % (0-2.0); EOS % 0.7 % (0-4.5); HEMATOCRIT 37.8 % (32.4-45.2); HEMOGLOBIN 12.7 GM/dL (10.7-15.3); LYMPH % 9.4 % (8-40); MCH 30.6 pg (25.7-33.7); MCHC 33.7 g/dl (32.0-36.0); MEAN PLT VOLUME 12.1 fl (7.5-11.1); MONO % 4.4 % (3.8-10.2); NEUT % 85.3 % (42.8-82.8); PLATELET COUNT 123 K/MM3 (134-434); RBC 4.16 M/mm3 (3.60-5.2); RDW 13.8 % (11.6-15.6); WHITE BLOOD COUNT 10.4 K/mm3 (4.0-10.0)
[2019-03-07 08:24] LABS: URINE APPEARANCE CLEAR; URINE BILIRUBIN NEGATIVE (NEGATIVE); URINE COLOR YELLOW; URINE GLUCOSE (UA) 3+ (NEGATIVE); URINE KETONE NEGATIVE (NEGATIVE); URINE LEUK ESTERASE NEGATIVE (NEGATIVE); URINE NITRITE NEGATIVE (NEGATIVE); URINE PROTEIN NEGATIVE (NEGATIVE); URINE UROBILINOGEN 0.2 mg/dL (0.2-1.0)
[2019-03-07 08:24] LABS: ALBUMIN 3.5 g/dl (3.4-5.0); BILIRUBIN,TOTAL 0.7 mg/dL (0.2-1); BLOOD UREA NITROGEN 25.4 mg/dL (7-18); CALCIUM 8.8 mg/dL (8.5-10.1); CREATININE 0.8 mg/dL (0.55-1.3); POTASSIUM 4.6 mmol/L (3.5-5.1); TOT PROT 7.2 g/dl (6.4-8.2)
[2019-03-07 09:40] VITALS: BP 109/62; PULSE 68; TEMP 97.4
--- NOTE | 2019-03-07 15:05 | EKG ---
Test Reason : Blood Pressure : / mmHG Vent. Rate : 064 BPM Atrial Rate : 064 BPM P-R Int : 138 ms QRS Dur : 080 ms QT Int : 446 ms P-R-T Axes : 047 -10 016 degrees QTc Int : 460 ms NORMAL SINUS RHYTHM CANNOT RULE OUT ANTERIOR INFARCT , AGE UNDETERMINED ABNORMAL ECG WHEN COMPARED WITH ECG OF 18-FEB-2016 08:17, NO SIGNIFICANT CHANGE WAS FOUND Confirmed by KATHRYN MCKEON MD ([id number]) on 03/07/2019 3:04:57 PM Referred By: Confirmed By:KATHRYN MCKEON MD
== END 2019-03-07 11:52 | disposition home or self-care (01) ==
LOC: JER 06:47
PROC: 3E033GC Introduction of Other Therapeutic Substance into Peripheral Vein, Percutaneous Approach (ICD-10-PCS; principal; 2019-03-07)
DX: R10.13 Epigastric pain (principal); I10 Essential (primary) hypertension; E11.9 Type 2 diabetes mellitus without complications; Z79.4 Long term (current) use of insulin; E78.00 Pure hypercholesterolemia, unspecified; J45.909 Unspecified asthma, uncomplicated; Z79.02 Long term (current) use of antithrombotics/antiplatelets; Z88.5 Allergy status to narcotic agent; Z91.013 Allergy to seafood
CPT/HCPCS: 36415; 71046-TC-FY; 74177-TC; 80053; 81003; 83690; 84484; 85025; 87086; 93005; 93010; 96365; 99283-25

== ENCOUNTER 2020-06-21 04:17 | Day surgery (SDC) | payer MEDICARE, OTHER ==
[2020-06-18 15:28] VITALS: BMI 29.2
[2020-06-21] MEDS ORDERED: PROPOFOL 20 ML ONE (09:06)
[2020-06-21] MEDS ORDERED: MIDAZOLAM HCL 2 MG/2 ML SINGLE DOSE VIAL ONE (09:06)
[2020-06-21 09:50] VITALS: TEMP 97.3
[2020-06-21 13:54] VITALS: BP 134/77; PULSE 98
[2020-06-21] MEDS ORDERED: ONDANSETRON 4 MG/2 ML VIAL IVPUSH PRN (15:04)
[2020-06-21] MEDS ORDERED: ACETAMINOPHEN 325 MG TABLET (FP) PO PRN (15:04)
[2020-06-21] MEDS ORDERED: LACTATED RINGERS SOLUTION 1,000 ML IV SCH (15:15)
== END 2020-06-21 13:40 | disposition home or self-care (01) ==
LOC: JASU-SURG 04:17
PROVIDERS: ATTEND Urology
PROC: 0TF4XZZ Fragmentation in Left Kidney Pelvis, External Approach (ICD-10-PCS; principal; 2020-06-21 11:00)
DX: N20.0 Calculus of kidney (principal)
CPT/HCPCS: 82962

== ENCOUNTER 2020-10-18 09:45 | Emergency (ER) | payer MEDICARE, OTHER ==
[2020-10-18 10:04] VITALS: TEMP 97.1; BMI 26.2
[2020-10-18] MEDS ORDERED: KETOROLAC TROMETHAMINE 30 MG/1 ML VIAL IM ONE (10:31)
[2020-10-18] MEDS ORDERED: KETOROLAC TROMETHAMINE 30 MG/1 ML VIAL ONE ×2 (10:43→10:54)
[2020-10-18 12:37] VITALS: BP 124/79; PULSE 97
== END 2020-10-18 12:37 | disposition home or self-care (01) ==
LOC: JER 09:45
PROC: 3E0233Z Introduction of Anti-inflammatory into Muscle, Percutaneous Approach (ICD-10-PCS; principal; 2020-10-18)
DX: M79.604 Pain in right leg (principal); W01.0XXA Fall on same level from slipping, tripping and stumbling without subsequent striking against object, initial encounter; Y92.002 Bathroom of unspecified non-institutional (private) residence as the place of occurrence of the external cause
CPT/HCPCS: 73552-TC-RT-FY; 73590-TC-RT-FY; 73610-TC-RT-FY; 99285-25

== ENCOUNTER 2020-12-20 09:19 | Emergency (ER) | payer MEDICARE, OTHER ==
[2020-12-20 09:31] VITALS: PULSE 87; TEMP 97.9; BMI 29.2
[2020-12-20 09:32] VITALS: BP 104/64
[2020-12-20] MEDS ORDERED: KETOROLAC TROMETHAMINE 30 MG/1 ML VIAL IM ONE (10:01)
[2020-12-20] MEDS ORDERED: KETOROLAC TROMETHAMINE 60 MG/2 ML VIAL ONE (10:07)
== END 2020-12-20 10:24 | disposition home or self-care (01) ==
LOC: JERFT 09:19
PROC: 3E0233Z Introduction of Anti-inflammatory into Muscle, Percutaneous Approach (ICD-10-PCS; principal; 2020-12-20)
DX: M79.671 Pain in right foot (principal)
CPT/HCPCS: 96372; 99284-25